=== PATIENT | female | born 1975 | race African-American/Black ===

== ENCOUNTER 2019-03-28 15:53 | Observation (INO) | payer OTHER ==
[~2019-03-28] VITALS: Ht 162.6 cm; Wt 106.6 kg
[2019-03-28 16:33] LABS: BASOPHILS # (AUTO) 0.1 (0.0-0.1); BASOPHILS % 0.7 % (0.0-1.0); EOSINOPHILS # (AUTO) 0.1 (0.0-0.4); EOSINOPHILS % 1.6 % (0.0-6.0); HEMATOCRIT 42.6 % (34.2-44.1); HEMOGLOBIN 13.9 g/dL (12.0-16.0); LYMPHOCYTES # (AUTO) 2.5 (1.0-3.2); LYMPHOCYTES % 33.2 % (18.0-39.1); MEAN CORPUSCULAR HEMOGLOBIN 28.4 pg (28-32); MEAN CORPUSCULAR HGB CONC 32.6 g/dL (31-35); MEAN CORPUSCULAR VOLUME 87.1 fL (81-99); MONOCYTES # (AUTO) 0.6 (0.2-0.8); MONOCYTES % 8.3 % (4.4-11.3); NEUTROPHILS # (AUTO) 4.2 (2.1-6.9); NEUTROPHILS % 55.8 % (38.7-80.0); PLATELET COUNT 372 x10e3/uL (140-360); RED BLOOD COUNT 4.89 x10e6/uL (3.6-5.1); RED CELL DISTRIBUTION WIDTH 20.9 % (11.7-14.4)
[2019-03-28 16:51] LABS: ALANINE AMINOTRANSFERASE 17 IU/L (0-55); ALBUMIN/GLOBULIN RATIO 1.1 (0.8-2.0); ALKALINE PHOSPHATASE 69 IU/L (40-150); ANION GAP 16.4 mmol/L (8-16); BLOOD UREA NITROGEN 7 mg/dL (7-26); CALCIUM 9.4 mg/dL (8.4-10.2); CARBON DIOXIDE 21 mmol/L (22-29); CHLORIDE 101 mmol/L (98-107); CREATINE KINASE 117 IU/L (29-168); GLUCOSE 101 mg/dL (74-118); POTASSIUM 3.4 mmol/L (3.5-5.1); SODIUM 135 mmol/L (136-145)
--- NOTE | 2019-03-28 17:02 | Diagnostic Imaging Report ---
Chest, 2 views, 03/28/2019. History: Chest pain. Comparison: None available. Findings: The cardiac silhouette is at the upper limits of normal and the pulmonary vasculature is within normal limits. The lungs are clear without evidence of consolidation or pleural effusion. There are no acute osseous or soft tissue abnormalities. Impression: No acute cardiopulmonary abnormality. Signed by: Milad De Los Santos on 03/28/2019 4:58 PM
[2019-03-28 17:12] LABS: BUN/CREATININE RATIO 8 (6-25); CREATININE, SERUM 0.86 mg/dL (0.57-1.11); EST GLOMERULAR FILTRATION RATE > 60 ML/MIN (60-)
[2019-03-28] MEDS ORDERED: FERROUS SULFAT325 MG PO (17:27)
[2019-03-28] MEDS ORDERED: MORPHINE SULFATE INJ 4 MG/ML INJ 1ML IV PRN (17:30)
[2019-03-28] MEDS ORDERED: ONDANSETRON HCL INJ 2MG/ML 2ML 2 MG/ML VIAL IV PRN ×2 (17:30→18:00)
[2019-03-28] MEDS ORDERED: MORPHINE SULFATE 2 MG/ML SYR 1ML IV PRN (17:30)
[2019-03-28] MEDS ORDERED: ASPIRIN 81 MG CHEW TAB PO ONE (17:30)
[2019-03-28] MEDS ORDERED: ACETAMINOPHEN 325 MG TAB PO PRN (18:00)
[2019-03-28 18:43] VITALS: BP 181/87
[2019-03-28 18:44] VITALS: BP 181/87
[2019-03-28 18:50] VITALS: BP 181/87
[2019-03-28] MEDS: METOPROLOL TARTRATE 25 MG TAB PO SCH (19:18)
[2019-03-28] MEDS: FAMOTIDINE 20 MG TAB PO SCH (19:18)
[2019-03-28] MEDS ORDERED: CLONIDINE HCL 0.1 MG TAB PO PRN (20:15)
--- NOTE | 2019-03-28 20:18 | NUR ---
RECEIVED PT IN BED AOX3 RESPIRATIONS ARE EVEN AND UNLABORED PT IS NPO AFTER MIDNIGHT FOR STRESS TEST .DENIES CHEST PRESSURE .TELE #1 SR .LEFT AC 20 G S/L .CALL LIGHT WITH IN REACH .CONTINUE TO MONITOR
[2019-03-28 20:52] VITALS: BP 181/87
[2019-03-29] VITALS (7 sets, daily range): BP systolic 118–144; BP diastolic 62–85
--- NOTE | 2019-03-29 01:57 | Consultation ---
DATE OF CONSULTATION: 03/28/2019 Cardiac Consultation. REASON FOR CONSULTATION: Chest pain. HISTORY OF PRESENT ILLNESS: A 43-year-old lady who is known to be healthy with the exception of iron deficiency anemia. She did have iron transfusion in the past. She is on iron, but "not absorbing well." Regardless, the patient came to this institution because suddenly she had chest pain. Chest pain is atypical for coronary artery disease. It is lower retrosternal under the left breast. There is no pleuritic component. However, with trying to have depress during the exam, she felt a little bit more tightness. There is no cough. No hemoptysis. No recent fever or chills. The chest pain today and she noted also she is having frequent PVCs. She noted that because she felt palpitation and what she was looking at the monitor she had PVCs. Her blood pressure for a change it was elevated 180. She is very cautious about her blood pressure. 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 She denied having any diaphoresis. She was frightened by that chest pain. She checked into the emergency room. First set of cardiac enzymes normal. BNP is normal. Chest x-ray as per report showed no major abnormality. D-dimer is normal. The patient is currently comfortable with no chest pain. REVIEW OF SYSTEMS: GENERAL: No fever. No chills. HEENT: No vision problem. No hearing problem. PULMONARY: No cough. No hemoptysis. CARDIAC: As per HPI. Possible sleep apnea. No orthopnea. No paroxysmal nocturnal dyspnea. GI: No hematemesis. No melena. No constipation. No diarrhea. : No hematuria. No dysuria MUSCULOSKELETAL: Occasional low back pain. NEURO: No seizure activity. No localized weakness. HEMATOLOGY: No easy bruising and bleeding. ENDOCRINE: No heat. No cold intolerance. HOME MEDICATION: Iron. ALLERGIES: ADHESIVE TAPE. PAST MEDICAL HISTORY: 1. Tubal ligation. 2. Iron deficiency anemia. 3. Low back pain. 4. Obesity. SOCIAL HISTORY: She is . She is a nurse. She is nonsmoker and alcohol drinker. FAMILY HISTORY: Father at age 42 with car accident. Mother doing well at age 66. Six siblings, four brothers, two sisters, all healthy. Three sons and one daughter. They are all healthy. PHYSICAL EXAMINATION: VITAL SIGNS: Height of 5 feet 5 inches. Weight of 232 pounds. Blood pressure 140/80, heart rate of 60, respiratory rate of 18. HEENT: Pupils are equal and reactive. NECK: No elevation of jugular venous pulsation. No bruit. CHEST: Clear to auscultation and percussion. HEART: PMI 5th left intercostal space. Normal first and second heart sounds. ABDOMEN: Soft with good bowel sounds. EXTREMITIES: No signs of clubbing. No edema. No signs of deep venous thrombosis. NEUROLOGIC: Awake, alert, oriented. Neck is supple. No motor deficits. LABORATORY DATA: D-dimer normal. First set of cardiac enzyme is normal. BNP is normal. TSH of 1.5. Sodium of 135, potassium 3.4, BUN of 7, creatinine of 0.86. EKG normal sinus rhythm. No major abnormality. Chest x-ray by report is normal. IMPRESSION AND PLAN: 1. Chest pain. 2. Dyspnea on exertion. 3. Obesity. 4. Iron-deficiency anemia. Differential diagnosis are discussed and explained to the patient and her . We are going to schedule the patient for cardiac stress test. We will schedule her for echocardiogram. We will check her lipid profile. Of course we are going to get serial cardiac enzymes. If they are elevated, then another approach will be done. We will follow the patient's progression with you and would like to thank you for the kind referral. MD DELROY Cobb/TOM /[id number]
--- NOTE | 2019-03-29 02:27 | History and Physical ---
PRIMARY CARE PHYSICIAN: Jacek Rutledge MD at [facility]. CHIEF COMPLAINT: Chest pressure and fatigue. HISTORY OF PRESENT ILLNESS: This is a 43-year-old female with no past medical history, presented to the ER with complaints of chest heaviness, burning sensation and feeling tired that started initially early this morning. She then had it while she was at work. The symptom lasted for about 20-30 minutes, so decided to present to the ER. She denies any fever, chills, nausea, vomiting, diaphoresis, palpitations, dizziness or passing out. Upon arrival to the ER, blood pressure was 185/128 and she was noted to have PVCs on telemetry. She is going to be admitted for observation and rule out her chest pain. PAST MEDICAL HISTORY: Iron deficiency anemia. SURGICAL HISTORY: Bilateral tubal ligation. FAMILY MEDICAL HISTORY: Sister of breast cancer. No other reports. SOCIAL HISTORY: She denies any tobacco, alcohol, or illicit drug use. 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 ALLERGIES: ADHESIVE TAPE. REVIEW OF SYSTEMS: GENERAL: Fatigue. HEENT: No head trauma or mouth sores. LUNGS: No shortness of breath or cough. CARDIOVASCULAR: Reports chest pain and heaviness. GI: No nausea or vomiting. NEUROLOGIC: Fatigue. MUSCULOSKELETAL: Moves all extremities. SKIN: No rash. PHYSICAL EXAMINATION: VITAL SIGNS: Temperature 96.9, pulse is 82, respirations 22, blood pressure 181/87, pulse ox is 99% on room air. GENERAL: No acute distress. HEENT: Normocephalic, atraumatic. NECK: Supple and midline. LUNGS: Clear to auscultation. CARDIOVASCULAR: Regular rate and rhythm. GI: Soft and nontender. NEUROLOGIC: Alert, awake, and oriented x3. MUSCULOSKELETAL: Moves all extremities. No edema. SKIN: Dry and intact. PSYCH: Calm. LABORATORY DATA: WBC 7.5, hemoglobin 13.9, hematocrit 42.6, platelet 372. Sodium is 135, potassium 3.4, CO2 21, anion gap is 16.4, creatinine 0.86, and BUN is 7, estimated GFR is greater than 60, calcium 9.4, AST 15, ALT 17. Creatine kinase 117, troponin 0.014. BNP 32.5. TSH 1.493. D-dimer 0.32. Urine test is negative. Chest x-ray is unremarkable. IMPRESSION: 1. Chest pain. Rule out acute coronary syndrome. First set of troponins are negative. We will check another set. PVC on telemetry noted. Cardiology has been consulted. She was given aspirin. We will start on morphine as needed and echocardiogram to be done. Cardiology has been consulted. 2. Accelerated hypertension. She denies any history of high blood pressure. However, upon arrival, blood pressure is 185/128. We will start on metoprolol 25 b.i.d. and we will start on clonidine 0.1 mg p.o. p.r.n. 3. Hypokalemia. We will replace. 4. Iron deficiency anemia. We will monitor for now. 5. Deep vein thrombosis prophylaxis. No chemical anticoagulation due to anemia. PLAN: Continue telemonitor, we will have Cardiology evaluate the patient and repeat labs in the a.m. Dictated by CARLOS A Deutsch Vanessa Pimentel MD MY/MODL /[id number]
[2019-03-29 03:19] LABS: CREATINE KINASE MB 0.4 ng/mL (0-5.0)
--- NOTE | 2019-03-29 05:11 | NUR ---
PT RESTED DURING THE NIGHT .DENIES CHEST PAIN .NPO FOR STRESS TEST .CALL LIGHT WITH IN REACH .CONTINUE TO MONITOR
[2019-03-29 05:34] LABS: BASOPHILS % 0.7 % (0.0-1.0); EOSINOPHILS # (AUTO) 0.1 (0.0-0.4); EOSINOPHILS % 1.8 % (0.0-6.0); HEMATOCRIT 43.5 % (34.2-44.1); HEMOGLOBIN 13.9 g/dL (12.0-16.0); LYMPHOCYTES # (AUTO) 1.8 (1.0-3.2); MEAN CORPUSCULAR HEMOGLOBIN 27.9 pg (28-32); MEAN CORPUSCULAR VOLUME 87.3 fL (81-99); MONOCYTES # (AUTO) 0.5 (0.2-0.8); MONOCYTES % 8.8 % (4.4-11.3); NEUTROPHILS % 55.5 % (38.7-80.0); PLATELET COUNT 351 x10e3/uL (140-360); RED BLOOD COUNT 4.98 x10e6/uL (3.6-5.1); RED CELL DISTRIBUTION WIDTH 20.6 % (11.7-14.4)
[2019-03-29 06:02] LABS: ALANINE AMINOTRANSFERASE 16 IU/L (0-55); ALBUMIN 3.5 g/dL (3.5-5.0); ALKALINE PHOSPHATASE 62 IU/L (40-150); ANION GAP 12.8 mmol/L (8-16); BLOOD UREA NITROGEN 8 mg/dL (7-26); BUN/CREATININE RATIO 10 (6-25); CALCIUM 9.2 mg/dL (8.4-10.2); CARBON DIOXIDE 22 mmol/L (22-29); CHLORIDE 107 mmol/L (98-107); CREATININE, SERUM 0.77 mg/dL (0.57-1.11); EST GLOMERULAR FILTRATION RATE > 60 ML/MIN (60-); GLUCOSE 98 mg/dL (74-118); POTASSIUM 3.8 mmol/L (3.5-5.1); SODIUM 138 mmol/L (136-145)
[2019-03-29 06:23] LABS: THYROID STIMULATING HORMONE 1.725 uIU/mL (0.350-4.940)
[2019-03-29 06:26] LABS: CHOL/HDL RATIO 5.5 (3.0-3.6)
--- NOTE | 2019-03-29 06:30 | NUR ---
PT C/O CHEST PAIN AND GIVEN MORPHINE AND ZOFRAN
--- NOTE | 2019-03-29 07:01 | NUR ---
BEDSIDE REPORT GIVEN TO THE ONCOMING NURSE.
--- NOTE | 2019-03-29 07:15 | NUR ---
PATIENT SITTING AT BED SIDE TALKING ON THE PHONE, NO DISTRESS NOTED. TELEMETRY BOX IN PLACE. BED IN LOWER POSITION, CALL LIGHT AT REACH.
[2019-03-29] MEDS ORDERED: REGADENOSON 0.4 MG/5 ML SYR IV ONE (07:30)
[2019-03-29] MEDS: FAMOTIDINE 20 MG TAB PO SCH (07:44)
[2019-03-29] MEDS: METOPROLOL TARTRATE 25 MG TAB PO SCH (09:00)
--- NOTE | 2019-03-29 09:45 | NUR ---
PATIENT OFF UNIT FOR A PROCEDURE.
--- NOTE | 2019-03-29 13:20 | NUR ---
PATIENT BACK TO UNIT. HAD A STRESS TEST DONE. SITTING UP IN BED WATCHING TV, CALL LIGHT AT REACH.
[2019-03-29] MEDS ORDERED: LOPRESSOR25 MG PO (14:36)
[2019-03-29 14:40] LABS: CREATINE KINASE MB 0.4 ng/mL (0-5.0)
--- NOTE | 2019-03-29 15:33 | NUR ---
CALL RECEIVED FROM DR IRBY. JUSTIN TO D/C PATIENT HOME.
--- NOTE | 2019-03-29 17:00 | NUR ---
PATIENT DISCHARGED HOME. DISCHARGE INSTRUCTIONS, PRESCRIPTION, AND FOLLOW UP GIVEN TO PATIENT, SHE VERBALIZED UNDERSTANDING. IV TO LEFT AC REMOVED WITH TIP INTACT. ALL PERSONAL ITEMS TAKEN WITH PATIENT. REFUSED WHEEL CHAIR, BUT WAS ACCOMPANIED TO FRONT LOBBY BY HOSPITAL STAFF IN STABLE CONDITION.
--- NOTE | 2019-03-29 18:23 | Myoview Stress Test ---
DATE OF STUDY: 03/28/2019 19:21:00 Stress Test - Treadmill ONLY TITLE OF REPORT: Exercise nuclear stress test. INDICATION FOR STUDY: Chest pain. TECHNICAL DETAILS: After risks, benefits, pros, and cons of exercise nuclear stress test were explained to the patient, the patient agreed to proceed. The patient was brought to the nuclear lab where she received 11.0 mCi dose of technetium-99m tetrofosmin intravenously and after 40 minutes, the patient was taken to the GE SPECT camera for resting myocardial perfusion imaging. Afterwards, the patient was then brought to the stress lab where 12-lead EKG monitoring and blood pressure monitoring were obtained. She exercised on a Anup protocol going from a baseline of 77 beats per minute to a maximum of 155 beats per minute, which is above our target heart rate of 149 beats per minute. At 5 minutes into the protocol where she achieved a heart rate of 149 beats per minute, which is our target. She received 33.0 mCi dose of technetium-99m tetrofosmin intravenously. She was exercised for an additional 1 minute and 10 seconds to circulate the radioisotope. EKG protocol stopped due to achievement of target heart rate. At peak exercise, there were no ischemic EKG changes or symptoms. She exercised total for 6 minutes and 10 seconds and blood pressure went from baseline of 85/67 to a maximum of 166/53, which is an appropriate hemodynamic response. Underlying rhythm was normal sinus rhythm, borderline left axis deviation, and no ST-T wave changes and again at peak exercise, there were no ischemic EKG changes. After 25 minutes, the patient was then taken to the GE SPECT camera for stress myocardial perfusion imaging. FINDINGS: 1. Resting myocardial perfusion imaging reveals largely normal tracer uptake. 2. Stress myocardial perfusion imaging reveals normal tracer uptake. 3. Following gated measurements were obtained: End-diastolic volume 8 mL, end systolic volume 31 mL, calculated left ventricular ejection fraction 65% with normal wall motion. CONCLUSIONS: 1. Normal myocardial perfusion imaging study revealing normal tracer uptake and no scintigraphic areas of ischemia. 2. Exercise treadmill stress test portion of this study was negative for any ischemic EKG changes or symptoms. 3. Normal left ventricular function with calculated ejection fraction of 65%. 4. Overall interpretation of this study is a low risk stress test. Note: This dictation is associated with dictation #[id number]. Ahmad MD EILEEN Kirkland/TOM /[id number]
--- NOTE | 2019-03-30 13:28 | Discharge Summary ---
PCP: Dr. Rutledge at [facility]. FINAL DIAGNOSES: 1. Chest pain, ruled out acute coronary syndrome. 2. Accelerated hypertension. 3. Hypokalemia. 4. Iron deficiency anemia. 5. HLD. CONSULTANTS: Dr. Hong with Cardiology. PROCEDURES: Stress test this a.m., which was negative. HISTORY: Per HPI. HOSPITAL COURSE: This is a 43-year-old female with no past medical history, presented to the ER with complaints of chest heaviness, pain, burning sensation, and feeling tiredness. Upon arrival to the ER, blood pressure was noted to be 187/127. She was also noted to have PVCs occasionally on telemetry. Cardiology was consulted, she underwent stress test which was negative. Troponin x3 were negative. TSH within normal limits. LDL elevated at 158. She was started on metoprolol for blood pressure control. BP is now improved. No further chest pain. PHYSICAL EXAMINATION: VITAL SIGNS: Temperature 96.1, pulse is 76, respirations 19, blood pressure 141/76, and pulse ox 98% on room air. GENERAL: No acute distress. HEENT: Normocephalic and atraumatic. NECK: Supple. LUNGS: Clear to auscultation. CARDIOVASCULAR: Regular rate and rhythm. GI: Soft and nontender. NEUROLOGIC: Alert, awake, and oriented x3. MUSCULOSKELETAL: Moves all extremities. No edema. SKIN: Dry. PSYCH: Calm. CONDITION AT DISCHARGE: Improved and stable. DC MEDICATIONS: We will start on metoprolol b.i.d. FOLLOWUP: Follow up with PCP and Cardiology in 1 to 2 weeks. TIME SPENT: Total time of discharge is 32 minutes. Dictated by CARLOS A Deutsch Vanessa Pimentel MD MY/MODL /[id number] cc: Jacek Rutledge MD
--- OUTSIDE RECORDS SUMMARY | 2019-04-05 11:30 | XMS REPORT ---
Author Author [facility] Address Unknown Phone Unavailable Care Team Providers Care Radiology Aide Name Role Phone Azar HARDING Unavailable Unavailable CELESTE VELARDE Unavailable Unavailable Problems This patient has no known problems. Allergies, Adverse Reactions, Alerts This patient has no known allergies or adverse reactions. Medications This patient has no known medications. Results Test Description Test Time Test Comments Text Results Atomic Results Result Comments Stress Test - Treadmill ONLY 2019-03-29 14:51:00 [place] [address] Patient Name : GISELL VALLE MR #: [id number] : 1975 Age/Sex: 43/F Adm Physician : INO HARDING MD Admit Date : 03/28/19 Location : MED/SURG Room/Bed : [facility] REPORT: Myoview Stress Test DATE OF STUDY: 03/28/2019 19:21:00 Stress Test - Treadmill ONLY TITLE OF REPORT: Exercise nuclear stress test. INDICATION FOR STUDY: Chest pain. TECHNICAL DETAILS: After risks, benefits, pros, and cons of exercise nuclear stress test were explained to the patient, the patient agreed to proceed. The patient was brought to the nuclear lab where she received 11.0 mCi dose of technetium-99m tetrofosmin intravenously and after 40 minutes, the patient was taken to the [employer] SPECT camera for resting myocardial perfusion imaging. Afterwards, the patient was then brought to the stress lab where 12-lead EKG monitoring and blood pressure monitoring were obtained. She exercised on a Anup protocol going from a baseline of 77 beats per minute to a maximum of 155 beats per minute, which is above our target heart rate of 149 beats per minute. At 5 minutes into the protocol where she achieved a heart rate of 149 beats per minute, which is our target. She received 33.0 mCi dose of technetium-99m tetrofosmin intravenously. She was exercised for an additional 1 minute and 10 seconds to circulate the radioisotope. EKG protocol stopped due to achievement of target heart rate. At peak exercise, there were no ischemic EKG changes or symptoms. She exercised total for 6 minutes and 10 seconds and blood pressure went from baseline of 85/67 to a maximum of 166/53, which is an appropriate hemodynamic response. Underlying rhythm was normal sinus rhythm, borderline left axis deviation, and no ST-T wave changes and again at peak exercise, there were no ischemic EKG changes. After 25 minutes, the patient was then taken to the [employer] SPECT camera for stress myocardial perfusion imaging. FINDINGS: 1. Resting myocardial perfusion imaging reveals largely normal tracer uptake. 2. Stress myocardial perfusion imaging reveals normal tracer uptake. 3. Following gated measurements were obtained: End-diastolic volume 8 mL, end systolic volume 31 mL, calculated left ventricular ejection fraction 65% with normal wall motion. CONCLUSIONS: 1. Normal myocardial perfusion imaging study revealing normal tracer uptake and no scintigraphic areas of ischemia. 2. Exercise treadmill stress test portion of this study was negative for any ischemic EKG changes or symptoms. 3. Normal left ventricular function with calculated ejection fraction of 65%. 4. Overall interpretation of this study is a low risk stress test. Note: This dictation is associated with dictation #[id number]. MD EILEEN Mccallum/TOM /[id number] Signature Date Dictated By: RAYMON IRBY MD Transcribed By: TOM on 03/29/19 <Electronically signed by RAYMON IRBY MD><<Signature on File>>03/30/19 0837 COPY TO: CHEST 2 VIEWS 2019-03-28 16:57:[address] [address] Patient Name: GISELL VALLE MR #: [id number] : 1975 Age/Sex: 43/F Req #: [id number] Adm Physician: Ordered by: SUZAN BROWN DO Report #: [id number] Location: ER Room/Bed: Procedure: [id number] DX/CHEST 2 VIEWS Exam Date: Exam Time: REPORT STATUS: Signed Chest, 2 views, 03/28/2019. History: Chest pain. Comparison: None available. Findings: The cardiac silhouette is at the upper limits of normal and the pulmonary vasculature is within normal limits. The lungs are clear without evidence of consolidation or pleural effusion. There are no acute osseous or soft tissue abnormalities. Impression: No acute cardiopulmonary abnormality. Signed by: Suzan De Los Santos on 03/28/2019 4:58 PM Dictated By: SUZAN DE LOS SANTOS MD 55 Transcribed By: SWETHA on 03/28/191657 COPY TO: SUZAN BROWN DO CBC W/PLT COUNT & AUTO DIFFERENTIAL 2016-06-18 09:38:00 WHITE BLOOD CELL COUNT (BEAKER) (test gifm=247) 11.3 K/ L 4.0-10.0 RED BLOOD CELL COUNT (BEAKER) (test qwhv=086) 5.34 M/ L 4.00-5.00 HEMOGLOBIN (BEAKER) (test gwsy=066) 11.4 GM/DL 12.0-15.0 HEMATOCRIT (BEAKER) (test dzpm=331) 36.4 % 36.0-45.0 MEAN CORPUSCULAR VOLUME (BEAKER) (test umhe=381) 68.2 fL 82.0-99.0 MEAN CORPUSCULAR HEMOGLOBIN (BEAKER) (test mncz=630) 21.2 pg 27.0-33.0 MEAN CORPUSCULAR HEMOGLOBIN CONC (BEAKER) (test sabc=020) 31.2 GM/DL 32.0-36.0 RED CELL DISTRIBUTION WIDTH (BEAKER) (test psir=357) 18.5 % 10.3-14.2 PLATELET COUNT (BEAKER) (test zrzh=045) 330 K/CU MM 150-430 MEAN PLATELET VOLUME (BEAKER) (test yzgx=396) 10.9 fL 6.5-10.5 NUCLEATED RED BLOOD CELLS (BEAKER) (test ihum=152) 0 /100 WBC 0-0 NEUTROPHILS RELATIVE PERCENT (BEAKER) (test xkvl=135) 30 % LYMPHOCYTES RELATIVE PERCENT (BEAKER) (test hvdf=994) 56 % MONOCYTES RELATIVE PERCENT (BEAKER) (test chhg=079) 12 % EOSINOPHILS RELATIVE PERCENT (BEAKER) (test adus=499) 0 % BASOPHILS RELATIVE PERCENT (BEAKER) (test nejj=339) 2 % NEUTROPHILS ABSOLUTE COUNT (BEAKER) (test cuuo=424) 3.37 K/ L 1.80-8.00 LYMPHOCYTES ABSOLUTE COUNT (BEAKER) (test rnix=403) 6.35 K/ L 1.48-4.50 MONOCYTES ABSOLUTE COUNT (BEAKER) (test ztpe=737) 1.34 K/ L 0.00-1.30 EOSINOPHILS ABSOLUTE COUNT (BEAKER) (test niqe=272) 0.05 K/ L 0.00-0.50 BASOPHILS ABSOLUTE COUNT (BEAKER) (test butx=629) 0.19 K/ L 0.00-0.20 [id number](MANUAL DIFFERENTIAL)2016-06-18 09:38:00* Test Item Value Reference Range Comments TOTAL COUNTED (BEAKER) (test giuf=5991) PLT MORPHOLOGY (BEAKER) (test mjfu=994) Normal RBC MORPHOLOGY (BEAKER) (test gtoj=750) Normal ATYPICAL LYMPHS(BEAKER) (test somi=1508) Present BASIC METABOLIC [id number] 08:50:00* Test Item Value Reference Range Comments SODIUM (BEAKER) (test quqz=837) 137 meq/L 136-145 POTASSIUM (BEAKER) (test bbcg=798) 3.8 meq/L 3.5-5.1 CHLORIDE (BEAKER) (test cukp=109) 104 meq/L 98-107 CO2 (BEAKER) (test iuhn=034) 22 meq/L 22-29 BLOOD UREA NITROGEN (BEAKER) (test bxnh=041) 7 mg/dL 7-21 CREATININE (BEAKER) (test ipav=043) 0.89 mg/dL 0.57-1.25 GLUCOSE RANDOM (BEAKER) (test ditl=532) 100 mg/dL 70-105 CALCIUM (BEAKER) (test zawc=275) 9.2 mg/dL 8.4-10.2 EGFR (BEAKER) (test oejt=5478) mL/min/1.73 sq m INSUFFICIENT CLINICAL DATA TO CALCULATE ESTIMATED GFR. [id number] 08:45:00* Test Item Value Reference Range Comments LIPASE (BEAKER) (test pqdu=080) 26 U/L 8-78 HEPATIC FUNCTION [id number] 08:45:00* Test Item Value Reference Range Comments TOTAL PROTEIN (BEAKER) (test xeql=104) 8.3 gm/dL 6.0-8.3 ALBUMIN (BEAKER) (test hvyw=0005) 4.2 g/dL 3.5-5.0 BILIRUBIN TOTAL (BEAKER) (test vnle=589) 0.4 mg/dL 0.2-1.2 BILIRUBIN DIRECT (BEAKER) (test udgd=020) 0.2 mg/dL 0.1-0.5 ALKALINE PHOSPHATASE (BEAKER) (test hcfp=279) 96 U/L 40-150 AST (SGOT) (BEAKER) (test ozta=086) 196 U/L 5-34 ALT (SGPT) (BEAKER) (test hgjk=250) 223 U/L 6-55 URINALYSIS W/ [id number] 08:26:00* Test Item Value Reference Range Comments COLOR (BEAKER) (test ztux=462) Yellow CLARITY (BEAKER) (test dbci=187) Hazy SPECIFIC GRAVITY UA (BEAKER) (test cyvu=559) 1.015 1.001-1.035 PH UA (BEAKER) (test coqz=023) 5.5 5.0-8.0 PROTEIN UA (BEAKER) (test syzc=206) 10 mg/dL Negative GLUCOSE UA (BEAKER) (test sshz=220) Negative Negative KETONES UA (BEAKER) (test yiio=049) Trace Negative BILIRUBIN UA (BEAKER) (test femk=224) Negative Negative BLOOD UA (BEAKER) (test vdvm=220) Negative Negative NITRITE UA (BEAKER) (test mdxg=712) Negative Negative LEUKOCYTE ESTERASE UA (BEAKER) (test pwtq=762) Trace Negative UROBILINOGEN UA (BEAKER) (test sylz=096) 0.2 mg/dL 0.2-1.0 RBC UA (BEAKER) (test tqtt=985) 1 /HPF WBC UA (BEAKER) (test zhtj=375) 2 /HPF MUCUS (BEAKER) (test vzfc=5572) Few SQUAMOUS EPITHELIAL (BEAKER) (test afez=143) 2 /HPF SOURCE(BEAKER) (test vehe=7003) SCREEN, [id number] 08:24:00* Test Item Value Reference Range Comments TEST URINE (BEAKER) (test yblj=132) Negative
== END 2019-03-29 16:58 | disposition home or self-care (01) ==
LOC: ER 15:53 → ERHOLD 17:20 → MED/SURG3 18:09
PROVIDERS: ADMIT Internal Medicine; ATTEND Internal Medicine
DX: R07.2 Precordial pain (principal); I49.3 Ventricular premature depolarization; Z91.048 Other nonmedicinal substance allergy status; I10 Essential (primary) hypertension; E87.6 Hypokalemia; D50.9 Iron deficiency anemia, unspecified; E66.9 Obesity, unspecified; Z68.41 Body mass index [BMI] 40.0-44.9, adult; E78.5 Hyperlipidemia, unspecified
CPT/HCPCS: 36415; 71046; 78452; 80053 ×2; 80061; 81025; 82550 ×2; 82553 ×2; 83880; 84443 ×2; 84484 ×2; 85025 ×2; 85379; 93005; 93017; 93306; 99284; A9502; G0378 ×2; J2270; J2405